=== PATIENT | male | born 1970 | race American Indian/Alaskan Native ===

== ENCOUNTER 2018-08-06 17:40 | Emergency (ER) | payer OTHER ==
[2018-08-06 19:40] VITALS: RESP 18
[2018-08-06] MEDS ORDERED: Sodium Chloride 0.9% 1,000 ML IV ONE (19:49)
--- NOTE | 2018-08-06 19:49 | C.PDOC ---
History Of Present Illness Patient presents with diarrhea since yesterday. He was seen at [facility] [place], treated and released, given something for nausea but nothing for diarrhea. He reports 20 loose bowel movements since he left, unknown etiology, denies sick contact or outside foods. Time Seen by Provider: 08/06/18 19:49 Chief Complaint (Nursing): GI Problem History Per: Patient History/Exam Limitations: no limitations Onset/Duration Of Symptoms: Days (Yesterday) Current Symptoms Are (Timing): Still Present Severity: Moderate Pain Scale Rating Of: 4 Radiation Of Pain To:: None Quality Of Discomfort: Unable To Describe Associated Symptoms: Diarrhea Exacerbating Factors: None Alleviating Factors: None Recent travel outside of the [place]: No Past Medical History Reviewed: Historical Data, Nursing Documentation, Vital Signs Vital Signs: Last Vital Signs Temp 99.0 F 08/06/18 19:39 Pulse 86 08/06/18 19:39 Resp 18 08/06/18 19:39 BP 144/87 08/06/18 19:39 Pulse Ox 96 08/06/18 19:39 Family History: States: No Known Family Hx - Social History Hx Alcohol Use: Yes Hx Substance Use: No - Immunization History Hx Tetanus Toxoid Vaccination: No Hx Influenza Vaccination: No Review Of Systems Constitutional: Negative for: Fever, Chills Cardiovascular: Negative for: Chest Pain, Palpitations Respiratory: Negative for: Cough, Shortness of Breath Gastrointestinal: Positive for: Diarrhea. Negative for: Nausea, Vomiting Neurological: Negative for: Weakness, Numbness Physical Exam - Physical Exam Appears: Non-toxic Skin: Warm, Dry Head: Normacephalic Oral Mucosa: Moist Neck: Trachea Midline, Supple Chest: Symmetrical, No Tenderness Cardiovascular: Rhythm Regular Respiratory: No Rales, No Rhonchi, No Wheezing Gastrointestinal/Abdominal: Soft, No Tenderness, No Distention Back: No CVA Tenderness Neurological/Psych: Oriented x3 ED Course And Treatment - Laboratory Results Result Diagrams: 08/06/18 20:08 08/06/18 20:08 O2 Sat by Pulse Oximetry: 96 (Room air) Pulse Ox Interpretation: Normal Progress Note: Blood work and urinalysis ordered. IV fluids, protonix, and lomotil administered. Reevaluation Time: 22:11 Reassessment Condition: Improved Medical Decision Making Medical Decision Making: Upon provider reevaluation patient is feeling better, is medically stable, and requires no further treatment in the ED at this time. Patient will be discharged home with Rx for flagyl . Counseling was provided and all questions were a nswered regarding diagnosis and need for follow up with dr nunez. There is agreement to discharge plan. Return if symptoms persist or worsen. Disposition Counseled Patient/Family Regarding: Studies Performed, Diagnosis, Need For Followup, Rx Given - Disposition Referrals: Elly Nunez MD [Medical Doctor] - Disposition: HOME/ ROUTINE Disposition Time: 19:49 Condition: FAIR Additional Instructions: Please use kaopectate for the diarrhea Prescriptions: Metronidazole [Flagyl] 500 mg PO TID #21 tablet Instructions: Diarrhea in Adolescents and Adults Forms: [employer] (Filipino) - Clinical Impression Clinical Impression: Diarrhea - Scribe Statement The provider has reviewed the documentation as recorded by the Scribtre Najera All medical record entries made by the Scribe were at my direction and personally dictated by me. I have reviewed the chart and agree that the record accurately reflects my personal performance of the history, physical exam, medical decision making, and the department course for this patient. I have also personally directed, reviewed, and agree with the discharge instructions and disposition.
[2018-08-06] MEDS ORDERED: Atropine-Diphenoxylate 0.025-2.5 mg Tab PO STA (20:00)
[2018-08-06 20:17] LABS: EOS # 0.1 K/uL (0.0-0.7); MEAN CORPUSCULAR HEMOGLOBIN 28.9 pg (27.0-31.0); MEAN PLATELET VOLUME 9.3 fL (7.2-11.7)
[2018-08-06 20:22] LABS: BASO % 0.9 % (0.0-2.0); EOS % 1.6 % (0.0-4.0); HEMOGLOBIN 14.3 g/dL (12.0-18.0); LYMPH # 1.4 K/uL (1.0-4.3); LYMPH % 28.4 % (20.0-40.0); MONO # 0.5 K/uL (0.0-0.8); MONO % 9.3 % (0.0-10.0); NEUT % 59.8 % (50.0-75.0); NRBC % 0.9 % (0.0-2.0); RBC 4.96 Mil/uL (4.40-5.90); RED CELL DISTRIBUTION WIDTH 13.2 % (11.5-14.5)
[2018-08-06 20:24] LABS: MEAN CORPUSCULAR HGB CONC 32.8 g/dL (33.0-37.0)
[2018-08-06 20:29] LABS: BLOOD UREA NITROGEN 11 mg/dL (9-20); CALCIUM 8.8 mg/dl (8.6-10.4); GFR NON-AFRICAN AMERICAN > 60; LIPASE 98 U/L (23-300)
[2018-08-06 20:30] LABS: ALB/GLOB RATIO 1.3 (1.0-2.1); ALBUMIN 4.5 g/dL (3.5-5.0); ALT/SGPT 22 U/L (21-72); AST/SGOT 46 U/L (17-59)
[2018-08-06 20:40] LABS: SQUAMOUS EPITHIAL 1 /hpf (0-5); URINE BILIRUBIN NEGATIVE (NEGATIVE); URINE BLOOD NEGATIVE (NEGATIVE); URINE CLARITY Hazy (Clear); URINE COLOR Yellow (YELLOW); URINE GLUCOSE (UA) NORMAL (Normal); URINE LEUKOCYTE ESTERASE TRACE Leu/uL (Negative); URINE PROTEIN 2+ mg/dL (NEGATIVE); URINE UROBILINOGEN NORMAL mg/dL (0.2-1.0)
[2018-08-06] MEDS ORDERED: Atropine-Diphenoxylate 0.025-2.5 mg Tab ONE (20:42)
[2018-08-06 22:29] VITALS: BP 120/83; PULSE 82; TEMP 98.8; O2SAT 97
== END 2018-08-06 22:30 | disposition home or self-care (01) ==
LOC: C.ER 17:40
DX: R19.7 Diarrhea, unspecified (principal)
CPT/HCPCS: 80053; 81001; 83690; 85025; 85610; 87045; 89055; 96361; 96374; 99284; C9113; J7030

== ENCOUNTER 2018-08-28 06:59 | Emergency (ER) | payer OTHER ==
[2018-08-28 07:08] VITALS: RESP 18; TEMP 98.9; O2SAT 98
--- NOTE | 2018-08-28 07:30 | C.PDOC ---
History Of Present Illness 48 year old male presents to the ED complaining of pain to his left great toe that started last night. Patient denies any fall or injuries. States he hasnt taken any medications for the pain. Patient denies any medical problems. Time Seen by Provider: 08/28/18 07:18 Chief Complaint (Nursing): Lower Extremity Problem/Injury History Per: Patient History/Exam Limitations: no limitations Onset/Duration Of Symptoms: Days Current Symptoms Are (Timing): Still Present Past Medical History Reviewed: Historical Data, Nursing Documentation, Vital Signs Vital Signs: Last Vital Signs Temp 98.9 F 08/28/18 07:04 Pulse 62 08/28/18 07:04 Resp 18 08/28/18 07:04 BP 142/91 H 08/28/18 07:04 Pulse Ox 98 08/28/18 07:04 Family History: States: No Known Family Hx - Social History Hx Alcohol Use: No Hx Substance Use: No - Immunization History Hx Tetanus Toxoid Vaccination: No Hx Influenza Vaccination: No Hx Pneumococcal Vaccination: No Review Of Systems Except As Marked, All Systems Reviewed And Found Negative. Constitutional: Negative for: Fever, Chills Musculoskeletal: Positive for: Other (Left great toe pain) Neurological: Negative for: Weakness, Numbness Physical Exam - Physical Exam Appears: Non-toxic, No Acute Distress Skin: Warm, Dry Head: Atraumatic, Normacephalic Oral Mucosa: Moist Neck: Supple Respiratory: Normal Breath Sounds Extremity: Tenderness (to 1st distal metatarsal), Capillary Refill (less than 2 seconds), No Deformity, Swelling (mild swelling at first distal metatarsal) Extremity: Bilateral: Atraumatic, Normal Color And Temperature, Normal ROM Pulses: Left Dorsalis Pedis: Normal, Right Dorsalis Pedis: Normal Neurological/Psych: Oriented x3, Normal Speech, Normal Motor, Normal Sensation Gait: Steady ED Course And Treatment O2 Sat by Pulse Oximetry: 98 (RA) Pulse Ox Interpretation: Normal - Other Rad No standard instances X-Ray: Interpreted by Me Interpretation: X-Ray foot: no fx Foot XR X-Ray: Read By Radiologist Interpretation: FINDINGS: BONES: No acute displaced fracture. Small calcaneal enthesophyte. JOINTS: No dislocation. SOFT TISSUES: Soft tissue swelling. No evidence of radiopaque foreign body. OTHER FINDINGS: None. IMPRESSION: Degenerative changes. Soft tissue swelling. No acute displaced fracture or dislocation identified.If symptoms persist, or if there is continued clinical concern, x-ray follow-up in 7-10 days should be considered. Progress Note: Treated with motrin Reassessment Condition: Improved Medical Decision Making Medical Decision Making: Plan: --Left Foot XR --Motrin 600 mg PO Disposition Counseled Patient/Family Regarding: Studies Performed, Diagnosis, Need For Followup, Rx Given - Disposition Referrals: [facility] [place] [Outside] Podiatry Clinic [Outside] Disposition: HOME/ ROUTINE Disposition Time: 08:30 Condition: STABLE Additional Instructions: Follow up with podiatry for further evaluation Return to ED if any increase symptoms Prescriptions: Naproxen [Naprosyn] 1 tab PO BID PRN #25 tab PRN Reason: Pain Instructions: Foot Sprain (DC) Forms: [employer] (American), Work Excuse - POA Present On Arrival: None - Clinical Impression Clinical Impression: Joint pain, Toe pain - PA / MANAGER OF COMPLIANCE / Resident Statement MD/DO has reviewed & agrees with the documentation as recorded. - Scribe Statement The provider has reviewed the documentation as recorded by the Prettyibtre Farrell All medical record entries made by the Nargis were at my direction and personally dictated by me. I have reviewed the chart and agree that the record accurately reflects my personal performance of the history, physical exam, medical decision making, and the department course for this patient. I have also personally directed, reviewed, and agree with the discharge instructions and disposition.
[2018-08-28 08:48] VITALS: BP 132/89; PULSE 77
--- NOTE | 2018-08-28 10:52 | RAD ---
PROCEDURE: Left Foot Radiographs. HISTORY: pain COMPARISON: None available. FINDINGS: BONES: No acute displaced fracture. Small calcaneal enthesophyte. JOINTS: No dislocation. SOFT TISSUES: Soft tissue swelling. No evidence of radiopaque foreign body. OTHER FINDINGS: None. IMPRESSION: Degenerative changes. Soft tissue swelling. No acute displaced fracture or dislocation identified.If symptoms persist, or if there is continued clinical concern, x-ray follow-up in 7-10 days should be considered.
== END 2018-08-28 08:47 | disposition home or self-care (01) ==
LOC: C.ER 06:59
DX: M79.675 Pain in left toe(s) (principal); M25.572 Pain in left ankle and joints of left foot